=== PATIENT | female | born 1985 ===

== ENCOUNTER 2021-01-19 10:57 | Inpatient (IN) | payer OTHER ==
[~2021-01-19] VITALS: Ht 154.9 cm; Wt 98.0 kg
[2021-01-19] MEDS ORDERED: PRENATAL TABLE1 EAC3 PO (11:52)
[2021-01-19] MEDS ORDERED: SYNTHROID88 MCG PO (11:53)
[2021-01-19] MEDS ORDERED: OMEGA-31000 MG PO (11:53)
== END 2021-01-21 13:33 | disposition home or self-care (01) | DRG 786 ==
LOC: LDR 10:57 → OB/GYN 01-20 01:58
PROVIDERS: ADMIT Obstetrics & Gynecology; ATTEND Obstetrics & Gynecology
PROC: 10D00Z1 Extraction of Products of Conception, Low, Open Approach (ICD-10-PCS; principal; 2021-01-20)
PROC: 4A1HXFZ Monitoring of Products of Conception, Cardiac Rhythm, External Approach (ICD-10-PCS; 2021-01-20)
DX: O32.8XX0 Maternal care for other malpresentation of fetus, not applicable or unspecified (principal); O34.32 Maternal care for cervical incompetence, second trimester; Z3A.26 26 weeks gestation of pregnancy; Z37.0 Single live birth; Z20.822 Contact with and (suspected) exposure to COVID-19

== ENCOUNTER 2021-12-21 07:39 | Inpatient (IN) | payer OTHER ==
[~2021-12-21 07:39] MED LIST: OMEGA-31000 MG PO; PRENATAL TABLE1 EAC3 PO; SYNTHROID88 MCG PO
[2021-12-23] MEDS ORDERED: KETO10TA2 PO (07:44)
[2021-12-23] MEDS ORDERED: ACETAMINOPHEN-1 EAC2 PO (07:44)
== END 2021-12-23 11:46 | disposition home or self-care (01) | DRG 747 ==
LOC: CIR.AMB 07:39 → O/R 10:54 → OB/GYN 10:54
PROVIDERS: ADMIT Obstetrics & Gynecology Maternal & Fetal Medicine; ATTEND Obstetrics & Gynecology Maternal & Fetal Medicine
PROC: 0UVC7ZZ Restriction of Cervix, Via Natural or Artificial Opening (ICD-10-PCS; principal; 2021-12-21 07:00)
DX: N88.3 Incompetence of cervix uteri (principal); Z20.822 Contact with and (suspected) exposure to COVID-19

== ENCOUNTER 2022-05-22 23:42 | Emergency (ER) | payer OTHER ==
[~2022-05-22] VITALS: Ht 154.9 cm; Wt 93.0 kg
[~2022-05-22 23:42] MED LIST changes: +ACETAMINOPHEN-1 EAC2 PO; +KETO10TA2 PO
[2022-05-23] MEDS ORDERED: ACETAMINOPHEN650 M2 PO (03:33)
== END 2022-05-23 03:41 | disposition home or self-care (01) ==
LOC: ER 23:42
DX: O20.9 Hemorrhage in early pregnancy, unspecified (principal); Z3A.01 Less than 8 weeks gestation of pregnancy; R10.2 Pelvic and perineal pain